=== PATIENT | female | born 1950 | race Caucasian/White ===

== ENCOUNTER 2019-06-27 05:34 | Inpatient (IN) | payer OTHER ==
[2019-06-08 13:06] LABS: HEMATOCRIT 38.8 % (37.0-47.0); HEMOGLOBIN 13.1 gm/dL (12.0-15.0); MCH 31.8 pg (26.0-34.0); MCHC 33.7 g/dL (28.0-37.0); MCV 94.3 fL (80.0-100.0); RBC 4.11 mil/uL (4.20-5.00); RDW 14.9 % (10.5-14.5)
[2019-06-08 13:07] LABS: URINE BILIRUBIN NEGATIVE (Negative); URINE BLOOD NEGATIVE (Negative); URINE CLARITY SL CLOUDY; URINE COLOR YELLOW; URINE GLUCOSE-RANDOM* NEGATIVE (Negative); URINE KETONES NEGATIVE (Negative); URINE LEUKOCYTES-REFLEX 1+ (Negative); URINE NITRITE-REFLEX NEGATIVE (Negative); URINE PROTEIN (DIPSTICK) TRACE (Negative); URINE SPECIFIC GRAVITY >= 1.030 (1.005-1.035); URINE UROBILINOGEN 0.2 E.U./dl (0.2-1.0)
[2019-06-08 13:15] LABS: ALBUMIN 4.2 g/dL (3.4-5.0); CALCIUM 9.5 mg/dL (8.5-10.1); CREATININE 1.1 mg/dL (0.6-1.0); POTASSIUM 4.4 mmol/L (3.5-5.1); SQUAMOUS >10 Many /LPF (0-3)
[2019-06-08 13:16] LABS: BACTERIA-REFLEX >30 Many /HPF (None Seen); CASTS None Seen /LPF (None Seen); CRYSTALS None Seen /LPF (None Seen); URINE RBC None Seen /HPF (0-2)
[2019-06-08 22:06] LABS: GLYCOHEMOGLOBIN (HGB A1C) 6.3 % (4.8-5.6)
--- NOTE | 2019-06-08 23:33 | EKG ---
[place] [address] [address] [facility] [employer] [place] [address] ELECTROCARDIOGRAM REPORT Name: DELL MEJIA Room #: PRE IN .#: [id number] Admission: Attend Phys: Nehemias Alberto MD Discharge: Date of : 50 Report #: [id number] THIS REPORT FOR: //name// [facility] Test Date: 2019-06-08 Test Time: 12:36:04 Pat Name: DELL MEJIA Department: Room: Gender: F Patient Ambassador: Mazin HINTON : 1950 Requested By: Nehemias Alberto Order Number: [id number] MD: Tyrese Whittaker Measurements Intervals [place] Rate: 87 P: 48 NH: 159 QRS: 15 QRSD: 89 T: 15 QT: 342 QTc: 412 Interpretive Statements Sinus rhythm Multiple ventricular premature complexes Low voltage, precordial leads Compared to ECG 04/04/2013 10:09:24 Ventricular premature complex(es) now present Low QRS voltage now present Electronically Signed On 06-08-2019 23:32:48 CDT by Tyrese Whittaker [email or web address] <ELECTRONICALLY SIGNED> By: Tyrese Whittaker MD 06/08/19 2332 1236 1236 Tyrese Whittaker MD /[facility]
[2019-06-27] VITALS (7 sets, daily range): BP systolic 119–167; BP diastolic 62–80
[~2019-06-27] VITALS: Ht 160 cm; Wt 109.3 kg
[~2019-06-27 05:34] MED LIST: ALLOPURINOL 30300 M1 PO; B-121000 MCG PO; B12INJ PO; CALCIUM STOOL240 MG; CHILDREN'S50 MG/1.24 PO; CLARITIN-D 24 H1 TA1 PO; COUMADIN 2 MG TA2 M1 PO; CRESTOR5 MG PO; CYMBALTA60 MG PO; DICLOFENAC SODI75 MG PO; FISH OIL + D31 EACH PO; FISH OIL 1,2001 EAC4 PO; GLUCOPHAGE XR500 MG PO; GLUCOPHAGE500 MG PO; HYDROCODON-ACE1 EAC5 PO; HYDROCODON-ACE1 EAC7 PO; KLOR-CON 10 ER10 MEQ PO; LEVOXYL100 MCG PO; LORATIDINE 10 M10 M1 PO; MICARDIS 80 MG80 MG PO; PREMARIN0.9 M1 PO; PRILOSEC 20 MG20 MG PO; PROVIGIL 200 M200 MG PO; SINGULAIR 10 MG10 M1 PO; SYNTHROID125 MC1 PO; THERA-M CAPLET1 EACH PO; TRIAMTERENE-HC1 EAC3 PO; VITAMIN D32000 UNI1 PO; ZADITOR5 M1 OPHTHALMIC
[2019-06-28 03:42] VITALS: BP 132/54
[2019-06-28 06:09] LABS: HEMATOCRIT 27.9 % (37.0-47.0); HEMOGLOBIN 9.4 gm/dL (12.0-15.0); MCH 31.7 pg (26.0-34.0); MCHC 33.7 g/dL (28.0-37.0); RBC 2.97 mil/uL (4.20-5.00); WBC 9.4 thou/uL (4.0-11.0)
--- NOTE | 2019-06-28 07:58 | O ---
[facility] [place] [address] OPERATIVE REPORT Name: DELL MEJIA Room #: 422-P [facility] IN M.R.#: [id number] Admission: 06/27/19 Attend Phys: Nehemias Alberto MD Discharge: Date of : 50 Report #: [id number] THIS REPORT FOR: //name// CC: Emily Alberto DATE OF SERVICE: 06/27/2019 PREOPERATIVE DIAGNOSIS: Degenerative osteoarthritis, right hip. POSTOPERATIVE DIAGNOSIS: Degenerative osteoarthritis, right hip. PROCEDURE: Right total hip arthroplasty. SURGEON: Nehemias Alberto MD INDICATIONS: This heavy 69-year-old female has progressive degenerative arthritis involving multiple joints. She underwent previous left total hip replacement with good result. She now has progressive right hip pain, which is quite limiting. She has elected to go ahead with right total hip arthroplasty. DESCRIPTION OF PROCEDURE: The patient was taken to the operating room where she was placed under general anesthesia. Prophylactic intravenous antibiotics were administered. She was turned to the left lateral decubitus position. The right hip, thigh and leg were meticulously prepped and draped. A slightly curving posterolateral skin incision was made. This was carried through abundant adipose tissue and fascia to expose the posterior aspect of the hip joint. The short external rotators and capsule were taken down and tagged with several #1 Tevdek sutures. The hip was dislocated posteriorly and moderately severe degenerative arthritis on both the femoral head and acetabulum was noted. A femoral neck osteotomy was performed and the canal was opened with reamers and hand broaches. The Story and Nephew hip system was utilized and a size 12 Synergy femoral component seemed to fit quite nicely. The trial component was removed and attention directed to the acetabulum. The acetabulum was exposed nicely, although with some difficulty given her large size. The acetabulum was sequentially reamed, gradually advancing to a 52 mm reamer. The Story and Nephew 52 mm fenestrated shell was selected. This was positioned in alignment with her true acetabulum, placing this in about 45 degrees off of vertical and about 20 degrees of anteversion. It seated nicely and appeared to be secure. In addition, 3 screws were placed through the apex holes in the shell engaging good periacetabular bone adding to stability. A polyethylene liner was then inserted and positioned with the 20-degree elevated rim at about the 9 o'clock posterior position. It seated nicely and appeared secure. The permanent Story and Nephew Synergy size 12 femoral component was brought on the field and impacted into the femur. It seated nicely and appeared to be secure and positioned about 15 degrees of anteversion. A trial reduction was performed and [facility] [address] [place] [address] OPERATIVE REPORT Name: DELL MEJIA Room #: 422-P [facility] IN M.R.#: [id number] Admission: 06/27/19 Attend Phys: Nehemias Alberto MD Discharge: Date of : 50 Report #: [id number] the hip seemed best suited for a +4 mm neck length. This resulted in satisfactory alignment, range of motion, stability and leg length. A +4 mm x 36 mm cobalt chrome femoral head component was brought on the field and impacted on the Hennessy taper neck. The hip was reduced and once again alignment, range of motion, stability and leg lengths were felt to be satisfactory. The wound was copiously irrigated. Good hemostasis was established. The short external rotators and capsule were repaired back to bone using the #1 Tevdek sutures. A single Hemovac was left in the wound exiting through a separate stab incision. The fascia was closed with multiple #1 Vicryl sutures. The adipose tissues and subcutaneous tissues were closed with 0 Monocryl. The skin was closed with skin anneliese. A sterile dressing was applied. The patient was awakened and returned to recovery room in good condition. <ELECTRONICALLY SIGNED> By: Nehemias Alberto MD 06/28/19 0758 0948 1002 Nehemias Alberto MD /nt
[2019-06-28 08:11] VITALS: BP 143/95
[2019-06-28 08:13] VITALS: BP 108/64
[2019-06-28 20:15] VITALS: BP 112/65
[2019-06-29 05:50] VITALS: BP 126/61
[2019-06-29 05:52] LABS: HEMATOCRIT 26.7 % (37.0-47.0); HEMOGLOBIN 8.9 gm/dL (12.0-15.0); MCHC 33.2 g/dL (28.0-37.0); MCV 93.3 fL (80.0-100.0); RBC 2.87 mil/uL (4.20-5.00); RDW 14.2 % (10.5-14.5); WBC 8.7 thou/uL (4.0-11.0)
[2019-06-29 07:40] VITALS: BP 126/65
[2019-06-29 15:26] VITALS: BP 126/65
--- NOTE | 2019-06-30 08:16 | D ---
[facility] [place] [address] DISCHARGE SUMMARY Name: DELL MEJIA Room #: 422-P [facility] IN M.R.#: [id number] Admission: 06/27/19 Attend Phys: Nehemias Alberto MD Discharge: 06/29/19 Date of : 50 Report #: [id number] THIS REPORT FOR: //name// CC: Emily Alberto DATE OF SERVICE: 06/29/2019 FINAL DIAGNOSES: 1. End-stage degenerative osteoarthritis, right hip. 2. Hypertension. 3. Type 2 diabetes. OPERATION PROCEDURES: Right total hip arthroplasty. HISTORY: This heavy, but otherwise well-appearing 69-year-old female who has had problems with degenerative arthritis in multiple joints. She is admitted at this time for right total hip arthroplasty. HOSPITAL COURSE: The patient was admitted and taken to the operating room on 06/27. She underwent right total hip arthroplasty, which was somewhat difficult given her very large size. Nevertheless, her postoperative course has been largely unremarkable. She has advanced from IV analgesics to oral analgesics, but still has moderate discomfort and is requiring oxycodone at this point. She is back on her other routine medications. She seems generally stable. Her type 2 diabetes seems to be well controlled. She has progressed with physical therapy and is ambulating independently using a walker for balance and safety. She is anxious for hospital discharge today, if possible. Her family notes that they can manage her at home with assistance as needed. DISCHARGE MEDICATIONS: Include allopurinol 300 mg twice daily, metformin 500 mg twice daily, Cymbalta 60 mg daily, Synthroid 125 mcg daily, Provigil 200 mg daily, Singulair 10 mg daily, potassium 10 mEq daily, Micardis 80 mg daily, oxycodone 10 mg q.6 hours as needed for pain, and Xarelto 10 mg daily. She will continue a gentle activity and exercise program at home and will then advance to outpatient therapy next week. She will return to my office for followup in 1 week and for suture removal in 2 weeks. <ELECTRONICALLY SIGNED> By: Nehemias Alberto MD 06/30/19 0816 1319 Nehemias Alberto MD /nt
== END 2019-06-29 17:47 | disposition home or self-care (01) | DRG 470 ==
LOC: PRE → 4E 05:52 → TBA 05:52 → PRE 11:32 → 4E 11:38 → PRE 11:47 → 4E 06-29 17:47
PROVIDERS: ADMIT Orthopaedic Surgery
PROC: 0SR901Z Replacement of Right Hip Joint with Metal Synthetic Substitute, Open Approach (ICD-10-PCS; principal; 2019-06-27)
DX: M16.11 Unilateral primary osteoarthritis, right hip (principal); E03.9 Hypothyroidism, unspecified; I10 Essential (primary) hypertension; E11.9 Type 2 diabetes mellitus without complications; Z96.659 Presence of unspecified artificial knee joint; E78.5 Hyperlipidemia, unspecified; G47.33 Obstructive sleep apnea (adult) (pediatric); Z88.2 Allergy status to sulfonamides; Z88.6 Allergy status to analgesic agent; Z91.041 Radiographic dye allergy status; Z79.899 Other long term (current) drug therapy
CPT/HCPCS: 10783; 50010; 50101; 50382; 50414; 51412; 53000; 53367; 56521; 56525; 56527; 57095; 57103; 62110; 62900; 70005